=== PATIENT | female | born 1960 | race Hispanic/Latino ===

== ENCOUNTER 2017-01-08 13:17 | Outpatient (CLI) | payer OTHER ==
--- NOTE | 2017-01-08 13:52 | Mammography Report ---
LEFT DIGITAL DIAGNOSTIC MAMMOGRAM : 01/08/17 13:17:00 CLINICAL: Recalled for asymmetry. COMPARISON:11/04/16 screening FINDINGS: Lateralmedial and spot magnification CC views were performed. Satisfactory effacement of the previously described asymmetry on the spot The lateral view is negative. IMPRESSION: Negative Mammogram. BI-RADS CATEGORY: 1 -- Negative RECOMMENDATION: Routine mammographic screening in one year. ACR BI-RADS MAMMOGRAPHIC CODES: 0 = Needs additional imaging evaluation; 1 = Negative; 2 = Benign; 3 = Probably benign; 4 = Suspicious; 5 = Malignant; 6 = Known biopsy-proven malignancy COMMENT: 1. Dense breast tissue, i.e., adenosis, fibrocystic changes, etc., may obscure an underlying neoplasm. 2. Approximately 10% of cancers are not detected with mammography. 3. A negative mammography report should not delay biopsy if a clinically suspicious mass is present. COMMENT: Patient follow-up letters are generated via our [employer] application.
== END 2017-01-08 13:18 | disposition home or self-care (01) ==
LOC: SPVWC 13:17
PROVIDERS: ATTEND Obstetrics & Gynecology
DX: R92.2 Inconclusive mammogram (principal)
CPT/HCPCS: G0206-LT

== ENCOUNTER 2021-07-12 11:24 | Outpatient (CLI) | payer OTHER ==
--- NOTE | 2021-07-13 10:14 | Mammography Report ---
DIGITAL SCREENING MAMMOGRAM WITH CAD, 07/12/2021 CLINICAL INFORMATION / INDICATION: Routine screening mammography. TECHNIQUE: Digital bilateral 2Dand 3D mammography with tomosynthesis was obtained in the craniocauda l and mediolateral oblique projections. This examination was interpreted with the benefit of Computer -Aided Detection analysis. COMPARISON: 11/04/2016, 08/05/2014 FINDINGS: Breast Density: There are scattered areas of fibroglandular density. No dominant mass, suspicious calcifications, or architectural distortion in either breast. IMPRESSION: No mammographic evidence of malignancy. Follow up recommendation: Routine yearly BI-RADS Category 1: Negative. A "normal" or negative report should not discourage follow up or biopsy of a clinically significant f inding. A written summary of these findings will be mailed to the patient. The patient will be entered into a mammography reporting system which will generate a reminder letter for the patient's next appointmen t at the appropriate interval. [employer] recommends yearly mammograms starting at age 40 and continuing as l dusty as a woman is in good health. Breast MRI is recommended for women with an approximate 20-25% or greater lifetime risk of breast cancer, including women with a strong family history of breast or ova fiona cancer or who have been treated for Hodgkin's disease. Signer Name: Jennifer Vigil MD Signed: 07/13/2021 10:10 AM Workstation Name: [id number]
== END 2021-07-12 11:25 | disposition home or self-care (01) ==
LOC: SPVWC 11:24
PROVIDERS: ATTEND Obstetrics & Gynecology
DX: Z12.31 Encounter for screening mammogram for malignant neoplasm of breast (principal)
CPT/HCPCS: 77063; 77067